=== PATIENT | female | born 1985 | race Caucasian/White ===

== ENCOUNTER 2018-08-13 22:47 | Emergency (ER) | payer BC ==
[2018-08-13 23:10] LABS: BILIRUBIN,URINE NEGATIVE (NEGATIVE); GLUCOSE, URINE (UA) NEGATIVE (NEGATIVE); KETONES,URINE (UA) NEGATIVE (NEGATIVE); LEUKOCYTE ESTERASE, URINE SMALL (NEGATIVE); NITRITE,URINE POSITIVE (NEGATIVE); OCCULT BLOOD,URINE LARGE (NEGATIVE); PROTEIN,URINE 100 mg/dL (NEGATIVE); UROBILINOGEN,URINE 0.2 (NORMAL) E.U./dL (NORMAL)
[2018-08-13 23:20] LABS: BACTERIA,URINE Rare /HPF (None Seen); CLARITY,URINE CLOUDY (CLEAR); RBC,URINE TNTC /HPF (0-5); SQUAMOUS EPITHELIAL CELL,UR RARE Squamous (<= Few); WBC CLUMPS,URINE PRESENT
--- NOTE | 2018-08-13 23:22 | ED Physician Documentation ---
PD HPI FEMALE - Stated complaint Stated Complaint: FEMALE /14 WKS - Chief complaint Chief Complaint: UTI - History obtained from History obtained from: Patient - History of Present Illness Timing - onset: How many days ago (2) Timing - duration: Days (2) Timing - details: Gradual onset, Still present Associated symptoms: Dysuria, Urinary frequency Contributing factors: Similar symptoms before: Diagnosis (UTI) Recently seen: Clinic - Additional information Additional information: 33-year-old female who is 14 weeks has developed urinary urgency frequency and dysuria for the past 2 days. She does have some low back pain associated with this and she is quite uncomfortable. This evening she felt so uncomfortable that she came to the emergency department. She has seen her [employer] doctor 3 days ago and had ultrasound done at that time with a intrauterine established. Review of Systems Constitutional: denies: Fever Eyes: denies: Decreased vision Ears: denies: Ear pain Nose: denies: Congestion Throat: denies: Sore throat Cardiac: denies: Chest pain / pressure Respiratory: denies: Dyspnea, Cough GI: reports: Abdominal Pain, Nausea. denies: Vomiting, Constipation, Diarrhea : reports: Dysuria, Frequency Skin: denies: Rash Musculoskeletal: reports: Back pain. denies: Neck pain, Extremity pain PD PAST MEDICAL HISTORY - Past Medical History Past Medical History: No - Past Surgical History Past Surgical History: Yes General: Cholecystectomy - Present Medications Home Medications: Ambulatory Orders Medication Instructions Recorded Confirmed Nitrofurantoin [Macrobid] 100 mg PO BID #14 capsule 08/13/18 - Allergies Allergies/Adverse Reactions: Allergies Allergy/AdvReac Type Severity Reaction Status Date / Time No Known Drug Allergies Allergy Verified 08/13/18 23:32 - Social History Does the pt smoke?: No Smoking Status: Never smoker Does the pt drink ETOH?: No Does the pt have substance abuse?: No - Immunizations Immunizations are current?: Yes - POLST Patient has POLST: No PD ED PE NORMAL - Vitals Vital signs reviewed: Yes (diastolic hypertension ) - General General: Alert and oriented X 3, No acute distress, Well developed/nourished - HEENT HEENT: Atraumatic, PERRL, EOMI - Neck Neck: Supple, no meningeal sign - Cardiac Cardiac: RRR, No murmur - Respiratory Respiratory: No respiratory distress, Clear bilaterally - Abdomen Abdomen: Soft, Other (suprapubic tenderness ) - Back Back: No CVA TTP, Other (There is some mild paraspinous point tenderness to the lower lumbar spine ) - Derm Derm: Normal color, Warm and dry, No rash - Extremities Extremities: No deformity, No edema - Neuro Neuro: Alert and oriented X 3, rehabilitation services aide 2-12 intact, No motor deficit, No sensory deficit, Normal speech Eye Opening: Spontaneous Motor: Obeys Commands Verbal: Oriented GCS Score: 15 - Psych Psych: Normal mood, Normal affect Results - Vitals Vitals: Vital Signs - 24 hr 08/13/18 08/13/18 22:57 23:39 Temperature 36.8 C 36.7 C Heart Rate 93 76 Respiratory 17 16 Rate Blood Pressure 129/96 H 111/87 H O2 Saturation 100 98 Oxygen O2 Source Room air - Labs Labs: Laboratory Tests 08/13/18 23:00 Urine Color YELLOW Urine Clarity CLOUDY Urine pH 6.0 Ur Specific [place] >=1.030 H Urine Protein 100 H Urine Glucose (UA) NEGATIVE Urine Ketones NEGATIVE Urine Occult Blood LARGE H Urine Nitrite POSITIVE H Urine Bilirubin NEGATIVE Urine Urobilinogen 0.2 (NORMAL) Ur Leukocyte Esterase SMALL H Urine RBC TNTC H Urine WBC >25 H Urine WBC Clumps PRESENT Ur Squamous Epith Cells RARE Squamous Urine Bacteria Rare Ur Microscopic Review INDICATED Urine Culture Comments INDICATED Procedures - Bedside sono Bedside sono by EMP: With use of bedside ultrasound the fetus is imaged with a heart rate of 156. PD MEDICAL DECISION MAKING - ED course Complexity details: reviewed results, re-evaluated patient, considered differential, d/w patient ED course: 33-year-old female 14 weeks with urinary tract infection is administered Pyridium and Macrobid. - Sepsis Event Vital Signs: Vital Signs - 24 hr 08/13/18 08/13/18 22:57 23:39 Temperature 36.8 C 36.7 C Heart Rate 93 76 Respiratory 17 16 Rate Blood Pressure 129/96 H 111/87 H O2 Saturation 100 98 Oxygen O2 Source Room air Departure - Departure Disposition: 01 Home, Self Care Clinical Impression: Urinary tract infection Qualifiers: Urinary tract infection type: acute cystitis Hematuria presence: with hematuria Qualified Code(s): N30.01 - Acute cystitis with hematuria Instructions: ED UTI Cystitis Female Follow-Up: Zander Boggs MD [Primary Care Provider] - Prescriptions: Nitrofurantoin [Macrobid] 100 mg PO BID #14 capsule Forms: Activity restrictions
[2018-08-13] MEDS ORDERED: PHENAZOPYRIDINE 100 MG TABLET PO STA (23:31)
[2018-08-13] MEDS ORDERED: NITROFURANTOIN MACRO 100 MG CAPSULE PO STA (23:32)
[2018-08-13] MEDS ORDERED: PHENAZOPYRIDINE 100 MG TABLETS (Prepack) PO STA (23:37)
[2018-08-13 23:39] VITALS: BP 111/87
== END 2018-08-13 23:48 | disposition home or self-care (01) ==
LOC: ED 22:47
DX: O23.12 Infections of bladder in pregnancy, second trimester (principal); O99.89 Other specified diseases and conditions complicating pregnancy, childbirth and the puerperium; R31.9 Hematuria, unspecified; Z3A.14 14 weeks gestation of pregnancy
CPT/HCPCS: 81001; 87086; 87181; 99283; A9270; 81003

== ENCOUNTER 2018-08-20 11:04 | Outpatient (CLI) | payer BC | END 2018-08-20 11:05 | disposition home or self-care (01) | LOC: LAB 11:04 | PROVIDERS: ATTEND Obstetrics & Gynecology | DX: O26.892 Other specified pregnancy related conditions, second trimester (principal); R30.0 Dysuria | CPT/HCPCS: 87086 ==

== ENCOUNTER 2018-09-09 17:56 | Emergency (ER) | payer BC ==
--- NOTE | 2018-09-09 18:19 | ED Physician Documentation ---
PD HPI ABD PAIN - Stated complaint Stated Complaint: 19 WKS/ABD/BACK PX - Chief complaint Chief Complaint: Abd Pain - History obtained from History obtained from: Patient - History of Present Illness Timing - onset: Today (G fourth P3 at 19 weeks gestation, started to have severe abdominal pain around 3 AM. It is a severe cramping sensation that radiates to the back. It comes every hour or so and last about 30 seconds and then goes away. Between attacks she is pain-free. Currently pain-free. Does not necessarily feel like prior labor. Did not have significant labor with prior pregnancies. No urinary or bowel complaints. No fluid loss or bleeding.) Review of Systems Ten Systems: 10 systems reviewed and negative Constitutional: denies: Fever, Chills GI: denies: Nausea, Vomiting, Constipation, Diarrhea, Hematemesis, Bloody / black stool : denies: Dysuria, Frequency PD PAST MEDICAL HISTORY - Past Surgical History Past Surgical History: Yes General: Cholecystectomy - Present Medications Home Medications: Ambulatory Orders Medication Instructions Recorded Confirmed Pnv No.122/Iron/Folic Acid 1 each PO DAILY 09/09/18 09/09/18 [ Multi Tablet] - Allergies Allergies/Adverse Reactions: Allergies Allergy/AdvReac Type Severity Reaction Status Date / Time No Known Drug Allergies Allergy Verified 09/09/18 18:01 - Social History Does the pt smoke?: No Smoking Status: Never smoker Does the pt drink ETOH?: No Does the pt have substance abuse?: No - Immunizations Immunizations are current?: Yes - POLST Patient has POLST: No PD ED PE NORMAL - Vitals Vital signs reviewed: Yes - General General: Alert and oriented X 3, No acute distress - Neck Neck: Supple, no meningeal sign, No bony TTP - Cardiac Cardiac: RRR, No murmur - Respiratory Respiratory: No respiratory distress, Clear bilaterally - Abdomen Abdomen: Normal bowel sounds, Soft, Non tender - Female Female : Other (Bedside ultrasound shows single live intrauterine with a heart rate of 143) - Back Back: No CVA TTP, No spinal TTP - Extremities Extremities: No edema, No calf tenderness / cord - Neuro Neuro: Alert and oriented X 3, Normal speech - Psych Psych: Normal mood, Normal affect Results - Vitals Vitals: Vital Signs - 24 hr 09/09/18 09/09/18 17:59 20:48 Temperature 36.2 C L Heart Rate 95 91 Respiratory 16 16 Rate Blood Pressure 126/84 H 118/77 O2 Saturation 100 100 Oxygen O2 Source Room air - Labs Labs: Laboratory Tests 09/09/18 09/09/18 09/09/18 18:20 19:30 19:30 WBC 7.4 RBC 4.36 Hgb 11.5 L Hct 34.1 L MCV 78.2 L MCH 26.4 L MCHC 33.7 RDW 13.6 Plt Count 144 MPV 9.6 Neut # (Auto) 5.9 Lymph # (Auto) 1.1 L [place] # (Auto) 0.2 Eos # (Auto) 0.1 Baso # (Auto) 0.0 Absolute Nucleated RBC 0.00 Nucleated RBC % 0.0 Sodium 133 L Potassium 3.3 L Chloride 102 Carbon Dioxide 22 Anion Gap 9.0 BUN 9 Creatinine 0.3 L Estimated GFR (MDRD) 253 Glucose 97 Calcium 8.9 Total Bilirubin 0.4 AST 12 ALT < 10 L Alkaline Phosphatase 54 Total Protein 6.8 Albumin 3.5 Globulin 3.3 Albumin/Globulin Ratio 1.1 Lipase 22 Urine Color YELLOW Urine Clarity CLEAR Urine pH 6.5 Ur Specific [place] >=1.030 H Urine Protein NEGATIVE Urine Glucose (UA) NEGATIVE Urine Ketones TRACE Urine Occult Blood NEGATIVE Urine Nitrite NEGATIVE Urine Bilirubin NEGATIVE Urine Urobilinogen 0.2 (NORMAL) Ur Leukocyte Esterase NEGATIVE Ur Microscopic Review NOT INDICATED Urine Culture Comments NOT INDICATED - Rads (name of study) Ob Sono Radiology: Prelim report reviewed (Cervix closed and long without evidence of abruption) PD MEDICAL DECISION MAKING - ED course ED course: 33-year-old woman 19 weeks , who presents with pain that sounds like contractions. Blood work and urinalysis were unremarkable. At about 8 PM she had an episode, she was on the monitor at the time and the OB nurse confirmed that it was a contraction. She had been here for about 2 hours at that point and that was the first 1. I spoke by phone with Dr. Kenyon, the on- call OB who recommended an ultrasound to evaluate the cervical length and for signs of abruption. If she is closed and long and there is no abruption no specific treatment is needed, I will call him back if that is not true. Departure - Departure Disposition: 01 Home, Self Care Clinical Impression: labor in second trimester Qualifiers: labor delivery status: without delivery Qualified Code(s): O60.02 - labor without delivery, second trimester Condition: Good Record reviewed to determine appropriate education?: Yes Instructions: ED Labor Premature Follow-Up: [facility] [Provider Group]
[2018-09-09 18:26] LABS: BILIRUBIN,URINE NEGATIVE (NEGATIVE); GLUCOSE, URINE (UA) NEGATIVE (NEGATIVE); KETONES,URINE (UA) TRACE mg/dL (NEGATIVE); LEUKOCYTE ESTERASE, URINE NEGATIVE (NEGATIVE); NITRITE,URINE NEGATIVE (NEGATIVE); OCCULT BLOOD,URINE NEGATIVE (NEGATIVE); PH,URINE 6.5 PH (5.0-7.5); PROTEIN,URINE NEGATIVE (NEGATIVE); UROBILINOGEN,URINE 0.2 (NORMAL) E.U./dL (NORMAL)
[2018-09-09 18:29] LABS: CLARITY,URINE CLEAR (CLEAR)
[2018-09-09 19:47] LABS: BASOPHILS % (AUTO) 0.3 %; EOSINOPHILS # (AUTO) 0.1 10^3/uL (0.0-0.7); EOSINOPHILS % (AUTO) 1.9 %; HGB - HEMOGLOBIN 11.5 g/dL (12.0-16.0); LYMPHOCYTES # (AUTO) 1.1 10^3/uL (1.5-3.5); LYMPHOCYTES % (AUTO) 14.8 %; MEAN CORPUSCULAR HEMOGLOBIN 26.4 pg (27.0-31.0); MEAN CORPUSCULAR HGB CONC 33.7 g/dL (32.0-36.0); MEAN CORPUSCULAR VOLUME 78.2 fL (81.0-99.0); MEAN PLATELET VOLUME 9.6 fL (7.9-10.8); MONOCYTES # (AUTO) 0.2 10^3/uL (0.0-1.0); MONOCYTES % (AUTO) 2.7 %; NEUTROPHILS # (AUTO) 5.9 10^3/uL (1.5-6.6); NEUTROPHILS % (AUTO) 80.3 %; PLT - PLATELET COUNT 144 10^3/uL (130-450); RED BLOOD COUNT 4.36 10^6/uL (4.20-5.40); RED CELL DISTRIBUTION WIDTH 13.6 % (12.0-15.0); WHITE BLOOD COUNT 7.4 x10^3/uL (4.8-10.8)
[2018-09-09 19:59] LABS: ALBUMIN 3.5 g/dL (3.2-5.5); ALBUMIN/GLOBULIN RATIO 1.1 (1.0-2.2); ALKALINE PHOSPHATASE 54 IU/L (42-121); ALT ALANINE AMINOTRANSFERASE < 10 IU/L (10-60); AST ASPARTATE AMINOTRANSFERASE 12 IU/L (10-42); BILIRUBIN,TOTAL 0.4 mg/dL (0.2-1.0); BUN - BLOOD UREA NITROGEN 9 mg/dL (6-20); CALCIUM 8.9 mg/dL (8.5-10.3); CARBON DIOXIDE - CO2 22 mmol/L (21-32); CHLORIDE 102 mmol/L (101-111); CREATININE 0.3 mg/dL (0.4-1.0); GFR - MDRD 253 (>89); GLUCOSE 97 mg/dL (70-100); LIPASE 22 U/L (22-51); SODIUM 133 mmol/L (135-145); TOTAL PROTEIN 6.8 g/dL (6.7-8.2)
[2018-09-09 20:49] VITALS: BP 118/77
--- NOTE | 2018-09-09 21:16 | Ultrasound Report ---
Reason: contractions, eval cervix length/abruption Procedure Date: 09/09/2018 Accession Number: [id number] / [id number] Procedure: US - OB Limited CPT Code: FULL RESULT: EXAM: LIMITED OBSTETRICAL ULTRASOUND EXAM DATE: 09/09/2018 08:19 PM. CLINICAL HISTORY: contractions, evaluate cervix length/abruption. COMPARISON: None. TECHNIQUE: Real-time sonographic evaluation of the fetus performed by the filtration supervisor. Multiple factory representative static images were saved for review. Additional transvaginal imaging to more accurately evaluate cervical length/placental position/etc. FINDINGS: Established due date: 02/08/2019. Estimated gestational age: 18 weeks 2 days. LMP: Uncertain. Edwards . Cardiac activity: 148 bpm. movement: Visualized. Presentation: Variable. Placenta: Posterior position. Amniotic fluid: Normal. ANNE MARIE 10.9 cm. MVP 3.6 cm. Cervix: Long and closed measuring 5 cm on the transvaginal examination. Detailed anatomic assessment is not performed on this exam. Visualized anatomical structures are without gross abnormality as visualized. IMPRESSION: 1. Single live intrauterine gestation. 2. Posterior placenta without evidence of abruption or previa. 3. Cervix is long and closed measuring 5 cm. 4. Detailed anatomic assessment recommended at 20-22 weeks gestation. [facility]
--- NOTE | 2018-09-09 21:16 | Ultrasound Report ---
Reason: contractions, eval cervix length/abruption Procedure Date: 09/09/2018 Accession Number: [id number] / [id number] Procedure: US - OB Transvaginal CPT Code: FULL RESULT: EXAM: LIMITED OBSTETRICAL ULTRASOUND EXAM DATE: 09/09/2018 08:19 PM. CLINICAL HISTORY: contractions, evaluate cervix length/abruption. COMPARISON: None. TECHNIQUE: Real-time sonographic evaluation of the fetus performed by the direct service professional. Multiple cash applications representative static images were saved for review. Additional transvaginal imaging to more accurately evaluate cervical length/placental position/etc. FINDINGS: Established due date: 02/08/2019. Estimated gestational age: 18 weeks 2 days. LMP: Uncertain. Edwards . Cardiac activity: 148 bpm. movement: Visualized. Presentation: Variable. Placenta: Posterior position. Amniotic fluid: Normal. ANNE MARIE 10.9 cm. MVP 3.6 cm. Cervix: Long and closed measuring 5 cm on the transvaginal examination. Detailed anatomic assessment is not performed on this exam. Visualized anatomical structures are without gross abnormality as visualized. IMPRESSION: 1. Single live intrauterine gestation. 2. Posterior placenta without evidence of abruption or previa. 3. Cervix is long and closed measuring 5 cm. 4. Detailed anatomic assessment recommended at 20-22 weeks gestation. RADIA
== END 2018-09-09 21:28 | disposition home or self-care (01) ==
LOC: ED 17:56
DX: O60.02 Preterm labor without delivery, second trimester (principal); Z3A.19 19 weeks gestation of pregnancy
CPT/HCPCS: 36415; 76815; 76817; 80053; 81001; 81003; 83690; 85025; 87086; 99283

== ENCOUNTER 2018-11-13 09:26 | Outpatient (CLI) | payer BC | END 2018-11-13 09:27 | disposition home or self-care (01) | LOC: LAB 09:26 | PROVIDERS: ATTEND Obstetrics & Gynecology | DX: R73.9 Hyperglycemia, unspecified (principal) | CPT/HCPCS: 36415; 82951; 82952 ==

== ENCOUNTER 2019-10-28 08:28 | Emergency (ER) | payer BC ==
--- NOTE | 2019-10-28 08:34 | ED Physician Documentation ---
PD HPI LOWER EXT INJURY - Stated complaint Stated Complaint: ANKLE INJURY - History obtained from History obtained from: Patient - History of Present Illness PD HPI LOW EXT INJURY LOCATION: Right, Ankle Type of injury: Twist, Other (foot twisted while walking on a dog bone) Where injury occurred: Home Timing - onset: How many hours ago (just prior to arrival, 1-2 hours ago) Timing - duration: Hours (2) Timing - details: Abrupt onset Severity Comments: moderate Improved by: Nothing Worsened by: Moving, Other (weight bearing) Associated symptoms: Swelling. No: Weakness, Numbness, Tingling, Discolored Contributing factors: No: Anticoagulated, Prior ortho surgery, Prosthetic joint, Work related Similar symptoms before: Has not had sx before Recently seen: Not recently seen - Treatment prior to arrival Treatment prior to arrival: none Review of Systems Ten Systems: 10 systems reviewed and negative Constitutional: denies: Fever Cardiac: reports: Reviewed and negative Respiratory: reports: Reviewed and negative GI: reports: Reviewed and negative Skin: reports: Reviewed and negative Musculoskeletal: reports: Extremity pain, Joint pain, Extremity swelling, Joint swelling Neurologic: denies: Generalized weakness, Focal weakness, Numbness, LOC Endocrine: reports: Reviewed and negative Immunocompromised: reports: Reviewed and negative PD PAST MEDICAL HISTORY - Past Medical History Past Medical History: No - Past Surgical History Past Surgical History: Yes General: Cholecystectomy - Present Medications Home Medications: Ambulatory Orders Medication Instructions Recorded Confirmed No122/Iron/Folic Acid 1 each PO DAILY 09/09/18 09/09/18 [ Multi Tablet] - Allergies Allergies/Adverse Reactions: Allergies Allergy/AdvReac Type Severity Reaction Status Date / Time No Known Drug Allergies Allergy Verified 09/09/18 18:01 - Social History Does the pt smoke?: No Smoking Status: Never smoker Does the pt drink ETOH?: No Does the pt have substance abuse?: No - Immunizations Immunizations are current?: Yes - POLST Patient has POLST: No PD ED PE NORMAL - Vitals Vital signs reviewed: Yes - General General: Alert and oriented X 3, No acute distress, Well developed/nourished - HEENT HEENT: Atraumatic, Moist mucous membranes - Neck Neck: Supple, no meningeal sign - Cardiac Cardiac: RRR - Respiratory Respiratory: No respiratory distress - Abdomen Abdomen: Non distended - Female Female : Deferred - Rectal Rectal: Deferred - Derm Derm: Normal color, Warm and dry, No rash - Extremities Extremities: No deformity, Normal ROM s pain. No: No calf tenderness / cord - Neuro Neuro: Alert and oriented X 3, No motor deficit, No sensory deficit, Normal speech Eye Opening: Spontaneous Motor: Obeys Commands Verbal: Oriented GCS Score: 15 - Psych Psych: Normal mood, Normal affect PD ED PE EXPANDED - Extremities Extremities: Right ankle (lateral inferior swelling, tenderness is mild, ATFL tenderness is mild ), Motor intact, Sensory intact, Vascular intact, Tendon intact. No: Deformity, Limited ROM, Bruising Results - Vitals Vitals: Vital Signs - 24 hr 10/28/19 08:33 Temperature 36.5 C Heart Rate 82 Respiratory 18 Rate Blood Pressure 119/83 H O2 Saturation 100 Oxygen O2 Source Room air - Rads (name of study) R ankle xray Radiology: EMP read indepedently (negative for acute bony injury or dislocation) PD MEDICAL DECISION MAKING - ED course Complexity details: reviewed results, re-evaluated patient, considered differential, d/w patient, d/w family ED course: ddx- ankle contusion, ankle sprain, ankle fracture, ankle dislocation 34 y/o F with minor trauma to R ankle, twisting injury, neurovascularly intact, likely sprain, will obtain xray, pt given ibuprofen for pain with xray pending. Xray here appears negative for acute fx or bony injury. Pt was given an margaret wrap and ibuprofen. she is stable for discharge with outpt f/u and return precautions if new concerning symptoms develop. Departure - Departure Disposition: 01 Home, Self Care Clinical Impression: Ankle sprain Qualifiers: Encounter type: initial encounter Involved ligament of ankle: calcaneofibular ligament Laterality: right Qualified Code(s): S93.411A - Sprain of margarito caneofibular ligament of right ankle, initial encounter Condition: Stable Record reviewed to determine appropriate education?: Yes Instructions: ED Sprain Ankle Follow-Up: Zander Boggs MD [Primary Care Provider] - As Needed Comments: Your xray today is negative for acute fracture or dislocation. This appears to be consistent with an ankle sprain which is an injury to the ligaments and tissues surrounding the ankle. It typically improves with rest, elevation, ibuprofen or other nsaids and ice. You can use an margaret wrap as needed for additional support. You can bear weight on your foot and ankle as tolerated.
[2019-10-28 08:37] VITALS: BP 119/83
[2019-10-28] MEDS: IBUPROFEN 600 MG TABLET PO STA (08:59)
--- NOTE | 2019-10-28 09:32 | XRAY Report ---
Reason: ankle pain, twisting, lat malleolus tender Procedure Date: 10/28/2019 Accession Number: [id number] / [id number] Procedure: XR - Ankle 3 View RT CPT Code: Final Report FULL RESULT: EXAM: RIGHT ANKLE RADIOGRAPHY EXAM DATE: 10/28/2019 09:08 AM. CLINICAL HISTORY: Ankle pain COMPARISON: None. TECHNIQUE: 3 views. FINDINGS: Bones: Normal. No fractures or bone lesions. Joints: Normal. No effusion. No subluxations. The ankle mortise is normally aligned. Soft Tissues: No significant abnormalities. IMPRESSION: Negative ankle radiography. No evidence of fracture or dislocation. RADIA
== END 2019-10-28 09:22 | disposition home or self-care (01) ==
LOC: ED 08:28
DX: S93.411A Sprain of calcaneofibular ligament of right ankle, initial encounter (principal); X50.1XXA Overexertion from prolonged static or awkward postures, initial encounter; Y93.01 Activity, walking, marching and hiking; Y92.009 Unspecified place in unspecified non-institutional (private) residence as the place of occurrence of the external cause
CPT/HCPCS: 73610; 99283; 99284; A9270

== ENCOUNTER 2020-05-19 17:50 | Emergency (ER) | payer BC ==
[2020-05-19 17:57] VITALS: BP 125/83
== END 2020-05-19 18:31 | disposition left against medical advice (07) ==
LOC: ED 17:50
DX: Z53.21 Procedure and treatment not carried out due to patient leaving prior to being seen by health care provider (principal)